=== PATIENT | female | born 1955 | race Caucasian/White ===

== ENCOUNTER 2024-05-14 17:52 | Inpatient (IN) | payer OTHER ==
[~2024-05-14] VITALS: Ht 177.8 cm; Wt 85.3 kg
[2024-05-14 18:27] LABS: BASOPHILS # (AUTO) 0.02 K/uL (0.00-0.20); BASOPHILS % (AUTO) 0.5 % (0.0-5.0); EOSINOPHILS # (AUTO) 0.15 K/uL (0.00-0.70); EOSINOPHILS % (AUTO) 3.9 % (0.0-8.0); HEMATOCRIT 39.9 % (36-48); LYMPHOCYTES # (AUTO) 1.1 K/uL (1.0-4.8); LYMPHOCYTES % (AUTO) 29.4 % (21.0-51.0); MEAN CORPUSCULAR HEMOGLOBIN 27.6 pg (27.0-33.0); MEAN CORPUSCULAR HGB CONC 31.8 g/dL (32.0-36.0); MEAN CORPUSCULAR VOLUME 86.7 fL (79-99); MONOCYTES # (AUTO) 0.3 K/uL (0.1-1.0); MONOCYTES % (AUTO) 8.8 % (3.0-13.0); NEUTROPHILS # (AUTO) 2.2 K/uL (1.8-7.7); NEUTROPHILS % (AUTO) 57.4 % (40.0-77.0); PLATELET COUNT (AUTO) 241 K/uL (130-400); RED CELL DISTRIBUTION WIDTH 16.5 % (11.0-15.5); WHITE BLOOD COUNT (AUTO) 3.9 K/uL (4.8-10.8)
[2024-05-14 18:34] LABS: SARS-CoV-2, RNA, NAAT NEGATIVE SARS CoV-2 (NEGATIVE)
[2024-05-14 18:36] LABS: CREATININE 0.8 mg/dL (0.5-1.0); POTASSIUM 3.8 mmol/L (3.5-5.1)
[2024-05-14 18:38] LABS: INFLUENZA TYPE A Negative For Type A (NEGATIVE); INFLUENZA TYPE B Negative For Type B (NEGATIVE)
[2024-05-14 18:45] LABS: ALBUMIN 3.8 g/dL (3.5-5.0); BILIRUBIN,TOTAL 0.5 mg/dL (0.2-1.0); TOTAL PROTEIN, SERUM 7.3 g/dL (6.0-8.3)
[2024-05-14] MEDS: 0.9%NACL 1000ML 1,000 ML IV ONE (20:47)
[2024-05-14] MEDS: NALoxone HCL 0.4 MG/1 ML ML IV ONE (20:48)
[2024-05-14 21:10] LABS: APPEARANCE,URINE CLEAR (CLEAR); BILIRUBIN,URINE NEGATIVE (NEGATIVE); COLOR,URINE YELLOW (YELLOW); GLUCOSE, URINE (UA) NEGATIVE (NEGATIVE); KETONES,URINE 10 mg/dL (NEGATIVE); LEUKOCYTE ESTERASE ,URINE 25 Leu/uL (NEGATIVE); NITRATE,URINE NEGATIVE (NEGATIVE); OCCULT BLOOD,URINE NEGATIVE (NEGATIVE); PH,URINE 5.5 (5.0-8.0); PROTEIN,URINE NEGATIVE (NEGATIVE); UROBILINOGEN,URINE 0.2 mg/dL (0.2-1.0)
[2024-05-14 21:12] LABS: ADD UA MICROSCOPIC YES
[2024-05-14 21:17] LABS: MUCUS,URINE RARE LPF (None Seen); RBC,URINE 0-1 /HPF (0-1); SQUAMOUS EPITHELIAL CELL,UR RARE /HPF (0-2)
[2024-05-14 21:20] LABS: AMPHET/METH SCREEN,URINE NEGATIVE (NEGATIVE); BARBITURATE SCREEN, URINE NEGATIVE (NEGATIVE); BENZODIAZEPINES SCREEN,URINE NEGATIVE (NEGATIVE); CANNABINOID SCREEN,URINE NEGATIVE (NEGATIVE); COCAINE SCREEN,URINE NEGATIVE (NEGATIVE); OPIATE SCREEN,URINE NEGATIVE (NEGATIVE); PHENCYCLIDINE SCREEN,URINE NEGATIVE (NEGATIVE)
[2024-05-14] MEDS ORDERED: doCUSate SODIUM 100 MG CAP PO PRN (23:30)
[2024-05-14] MEDS ORDERED: acetaMINOPHEN 650 MG SUPPOSITORY RC PRN (23:30)
[2024-05-14] MEDS ORDERED: TEMAZEPAM 15 MG CAPSULE PO PRN (23:30)
[2024-05-14] MEDS ORDERED: LACTULOSE 20 GM/30 ML UDCUP PO PRN (23:30)
[2024-05-14] MEDS ORDERED: ONDANSETRON 4MG INJ IVP PRN (23:30)
[2024-05-14] MEDS ORDERED: hydrALAZine 20MG/ML VIAL IV PRN (23:30)
[2024-05-15] VITALS (12 sets, daily range): BP systolic 102–161; BP diastolic 47–91; PULSE 63–99; RESP 18–20; TEMP 97.7–98.4; O2SAT 97–98
[2024-05-15] MEDS: ZOSYN 3.375GM +NS 50ML IV SCH (00:08)
[2024-05-15] MEDS: LACTATED RINGERS 1000ML 1,000 ML IV SCH (00:09)
[2024-05-15] MEDS: doCUSate SODIUM 100 MG CAP PO ONE (05:04)
[2024-05-15 05:18] LABS: BASOPHILS # (AUTO) 0.03 K/uL (0.00-0.20); BASOPHILS % (AUTO) 0.8 % (0.0-5.0); EOSINOPHILS # (AUTO) 0.16 K/uL (0.00-0.70); EOSINOPHILS % (AUTO) 4.3 % (0.0-8.0); HEMATOCRIT 36.9 % (36-48); IMMATURE GRANULOCYTE ABSOLUTE 0.01 K/uL (0-1); LYMPHOCYTES # (AUTO) 1.1 K/uL (1.0-4.8); LYMPHOCYTES % (AUTO) 28.1 % (21.0-51.0); MEAN CORPUSCULAR HEMOGLOBIN 28.1 pg (27.0-33.0); MEAN CORPUSCULAR VOLUME 87.9 fL (79-99); MONOCYTES # (AUTO) 0.4 K/uL (0.1-1.0); MONOCYTES % (AUTO) 11.5 % (3.0-13.0); NEUTROPHILS # (AUTO) 2.1 K/uL (1.8-7.7); PLATELET COUNT (AUTO) 211 K/uL (130-400); RED CELL DISTRIBUTION WIDTH 16.4 % (11.0-15.5); WHITE BLOOD COUNT (AUTO) 3.7 K/uL (4.8-10.8)
[2024-05-15 05:42] LABS: CREATININE 0.8 mg/dL (0.5-1.0); MAGNESIUM 1.7 mg/dL (1.80-2.40); PHOSPHORUS 3.8 mg/dL (2.5-4.9); POTASSIUM 4.4 mmol/L (3.5-5.1); THYROID STIMULATING HORMONE 3.49 uIU/mL (0.36-3.74)
[2024-05-15] MEDS: INSULIN humuLIN R 100 UNIT/ML 3ML SQ SCH (06:34)
[2024-05-15] MEDS: ENOXAPARIN SODIUM 40 MG/0.4 ML SYRINGE SQ SCH (09:46)
[2024-05-15] MEDS: ASPIRIN 81MG CHEW TAB PO SCH (09:46)
[2024-05-15] MEDS: PANTOPRAZOLE 40 MG TAB DR PO SCH (09:46)
[2024-05-15] MEDS: acetaMINOPHEN 325 MG TAB PO PRN (11:19)
[2024-05-15] MEDS ORDERED: hydrALAZine 20MG/ML VIAL IV PRN (12:30)
[2024-05-15] MEDS: cefTRIAXone 1G VIAL IVPB SCH (13:25)
[2024-05-15] MEDS: MAGNESIUM 2GM PREMIX 50ML 50 ML IV SCH (14:52)
[2024-05-15] MEDS: LORazepam 0.5 MG TABLET PO ONE (16:03)
[2024-05-15] MEDS: atorVAStatin 40 MG TABLET PO SCH (19:52)
[2024-05-16 03:36] VITALS: BP 135/61; PULSE 66; RESP 20; TEMP 98.5
[2024-05-16 04:20] LABS: MEAN CORPUSCULAR HEMOGLOBIN 27.2 pg (27.0-33.0); MEAN CORPUSCULAR HGB CONC 31.4 g/dL (32.0-36.0); MEAN CORPUSCULAR VOLUME 86.7 fL (79-99); RED BLOOD CELL COUNT(AUTO) 4.15 MIL/uL (4.00-5.50); RED CELL DISTRIBUTION WIDTH 16.2 % (11.0-15.5); WHITE BLOOD COUNT (AUTO) 3.1 K/uL (4.8-10.8)
[2024-05-16 04:53] LABS: ALBUMIN 2.7 g/dL (3.5-5.0); BILIRUBIN,TOTAL 0.2 mg/dL (0.2-1.0); CREATININE 0.8 mg/dL (0.5-1.0); MAGNESIUM 1.8 mg/dL (1.80-2.40); POTASSIUM 4.3 mmol/L (3.5-5.1); TOTAL PROTEIN, SERUM 5.4 g/dL (6.0-8.3)
[2024-05-16 08:00] VITALS: BP 139/89; PULSE 66; RESP 13; TEMP 97.4
[2024-05-16 12:00] VITALS: BP 157/77; PULSE 63; RESP 15; TEMP 98.1
[2024-05-16] MEDS ORDERED: CEFD300C3 PO (12:01)
[2024-05-16] MEDS ORDERED: ASPI-1005 PO (12:01)
== END 2024-05-16 12:30 | disposition home or self-care (01) | DRG 689 ==
LOC: EDH 17:52 → EDHIP 21:35 → 4AH 05-15 00:15
PROVIDERS: ADMIT Internal Medicine; ATTEND Internal Medicine
DX: N30.00 Acute cystitis without hematuria (principal); G93.41 Metabolic encephalopathy; D70.9 Neutropenia, unspecified; F41.9 Anxiety disorder, unspecified; F32.A Depression, unspecified; G47.00 Insomnia, unspecified; K21.9 Gastro-esophageal reflux disease without esophagitis; G89.29 Other chronic pain; N18.9 Chronic kidney disease, unspecified; E66.01 Morbid (severe) obesity due to excess calories; Z68.27 Body mass index [BMI] 27.0-27.9, adult; R26.0 Ataxic gait; I12.9 Hypertensive chronic kidney disease with stage 1 through stage 4 chronic kidney disease, or unspecified chronic kidney disease; Z98.84 Bariatric surgery status; Z79.899 Other long term (current) drug therapy; Z79.02 Long term (current) use of antithrombotics/antiplatelets; Z79.82 Long term (current) use of aspirin
CPT/HCPCS: 36415; 70450; 71045; 80048; 80053; 80305; 81001; 82140; 82948; 83735; 84100; 84443; 84484; 85025; 85027; 87086; 87635; 87804; 87880; 93005; 93306; 93880; 96374; 96375; G0378; J0696; J1650; J2310; J2543; J3475; J7030; J7120; G8980-CI; G8983-CI